=== PATIENT | male | born 1935 | race Caucasian/White ===

== ENCOUNTER 2017-03-30 12:08 | Emergency (ER) | payer OTHER ==
[~2017-03-30] VITALS: Ht 162.6 cm; Wt 70.3 kg
--- NOTE | 2017-03-30 12:10 | NUR ---
[id number], BBRA FROM HOME FOR RT RIB PAIN S/P fall. RR IS EVEN AND UNLABORED WITH NAD NOTED. SKIN IS WARM AND DRY. DR GRIMM AT BS FOR EVAL.
--- NOTE | 2017-03-30 12:32 | NUR ---
PATIENT CAME BACK FROM CT.
[2017-03-30] MEDS ORDERED: HYDROCODONE/APAP 10/325MG 1 EA TABLET PO ONE (13:00)
[2017-03-30] MEDS ORDERED: HYDROCODONE/APAP 10/325MG 1 EA TABLET ONE (13:45)
[2017-03-30] MEDS ORDERED: HYDROMORPHONE INJ 0.5 MG/0.5 ML SYRINGE ONE (13:51)
[2017-03-30] MEDS ORDERED: ONDANSETRON HCL/PF 4 MG/2 ML VIAL ONE (13:51)
--- NOTE | 2017-03-30 13:53 | NUR ---
CALLED NURSING SUP FOR BED
[2017-03-30] MEDS ORDERED: ONDANSETRON HCL/PF 4 MG/2 ML VIAL IVP ONE (14:00)
[2017-03-30] MEDS ORDERED: HYDROMORPHONE INJ 2 MG/ML DISP.SYRIN IV ONE (14:00)
[2017-03-30 14:05] LABS: BASOPHILS # (AUTO) 0.1 /CMM (0.0-0.2); BASOPHILS % (AUTO) 0.9 % (0.0-2.0); EOSINOPHILS # (AUTO) 0.5 /CMM (0.0-0.7); EOSINOPHILS % (AUTO) 8.1 % (0.0-6.0); HEMATOCRIT 39 % (39-51); LYMPHOCYTES # (AUTO) 1.4 /CMM (0.8-4.8); MEAN CORPUSCULAR HEMOGLOBIN 31 PG (26.0-33.0); MEAN CORPUSCULAR HGB CONC 33 g/dl (31.0-36.0); MEAN CORPUSCULAR VOLUME 95 fL (80-96); MONOCYTES # (AUTO) 0.7 /CMM (0.1-1.30); MONOCYTES % (AUTO) 10.2 % (2.0-12.0); NEUTROPHILS # (AUTO) 3.7 /CMM (1.8-8.9); NEUTROPHILS % (AUTO) 58.8 % (43.0-81.0); PLATELET COUNT (AUTO) 229 /CMM (150-450); RDW COEFFICIENT OF VARIATION 17.6 (11.5-15.0); RED BLOOD CELL COUNT(AUTO) 4.13 MIL/uL (4.5-6.0); WHITE BLOOD COUNT (AUTO) 6.4 K/uL (4.3-11.0)
[2017-03-30 14:20] LABS: INR 0.95 (0.85-1.15)
[2017-03-30 14:21] LABS: CREATININE 1.3 mg/dL (0.6-1.3); GLUCOSE 122 mg/dL (74-106); UREA NITROGEN, BLOOD 21 mg/dL (7-18)
[2017-03-30 14:26] LABS: CARBON DIOXIDE 26 mmol/L (21-32); CHLORIDE 104 mmol/L (98-107); POTASSIUM 4.1 mmol/L (3.5-5.1); SODIUM SERUM 139 mmol/L (136-145)
--- NOTE | 2017-03-30 14:26 | NUR ---
NIVIA FOX ON THE PHONE WITH [facility].
--- NOTE | 2017-03-30 14:35 | NUR ---
[facility] CALLED [phone]
--- NOTE | 2017-03-30 15:38 | NUR ---
MELINDA () [phone] - CALL AND UPDATE ONCE TRANSFER INFORMATION HAS BEEN RECEIVED FROM [facility]
--- NOTE | 2017-03-30 15:45 | NUR ---
ACCEPTED TO [facility] BY DR ZAPATA [phone] BLS ETA [id number]
[2017-03-30 17:37] VITALS: BP 147/77
--- NOTE | 2017-03-30 17:52 | NUR ---
Report given to NIVIA Leon for tony [facility].
== END 2017-03-30 18:04 | disposition short-term general hospital (02) ==
LOC: ER 12:12
DX: M48.56XA Collapsed vertebra, not elsewhere classified, lumbar region, initial encounter for fracture (principal); M51.36 Other intervertebral disc degeneration, lumbar region; M48.061 Spinal stenosis, lumbar region without neurogenic claudication; I71.4 Abdominal aortic aneurysm, without rupture; W19.XXXA Unspecified fall, initial encounter; Y93.89 Activity, other specified; Y92.89 Other specified places as the place of occurrence of the external cause; Y99.8 Other external cause status
CPT/HCPCS: 36415; 71045; 72131; 80048; 85025; 85730; 93005; 96374; 96375; 99285; A4606; J2405; Z7610